=== PATIENT | female | born 1985 | race Caucasian/White ===

== ENCOUNTER 2019-10-04 17:27 | Emergency (ER) | payer OTHER ==
[~2019-10-04] VITALS: Ht 167.6 cm; Wt 54.0 kg
[2019-10-04] MEDS ORDERED: DEXAMETHASONE SOD PHOSPHATE 4 MG INJ IM ONE (18:00)
--- NOTE | 2019-10-04 18:02 | NUR ---
PT IS IN ROOM #1A. DR BRO EVALUATED THE PT.
[2019-10-04] MEDS ORDERED: DEXAMETHASONE SOD PHOSPHATE 10 MG INJ ONE (18:05)
--- NOTE | 2019-10-04 18:11 | NUR ---
PT WAS D/C'd TO HOME. D/C INSTRUCTIONA GIVEN TO THE PT.
[2019-10-04 18:12] VITALS: BP 131/77
== END 2019-10-04 18:15 | disposition home or self-care (01) ==
LOC: ER 17:30
DX: J02.0 Streptococcal pharyngitis (principal)
CPT/HCPCS: 96372; 99283; J1100; A4663

== ENCOUNTER 2019-12-04 07:26 | Emergency (ER) | payer OTHER ==
[~2019-12-04] VITALS: Ht 165.1 cm; Wt 63.5 kg
--- NOTE | 2019-12-04 07:40 | NUR ---
DR ROMAN AT THE BEDSIDE FOR MSE.
[2019-12-04] MEDS ORDERED: PENICILLIN G BENZATHINE 2.4 MMU/4 ML DISP.SYRIN IM ONE ×2 (07:45→07:47)
[2019-12-04] MEDS ORDERED: DEXAMETHASONE SOD PHOSPHATE 10 MG INJ ONE (07:56)
[2019-12-04] MEDS ORDERED: DEXAMETHASONE SOD PHOSPHATE 4 MG INJ IM ONE (08:00)
--- NOTE | 2019-12-04 08:01 | NUR ---
Patient discharged to home in stable conditon. Written and verbal after care instructions given. Patient verbalizes understanding of instructions.
[2019-12-04 08:02] VITALS: BP 104/72
== END 2019-12-04 08:03 | disposition home or self-care (01) ==
LOC: ER 07:27
DX: J02.9 Acute pharyngitis, unspecified (principal)
CPT/HCPCS: 96372 ×2; 99283; J1100; A4663

== ENCOUNTER 2024-06-03 19:30 | Emergency (ER) | payer OTHER ==
[~2024-06-03] VITALS: Ht 157.5 cm; Wt 54.4 kg
[2024-06-03 20:27] LABS: BASOPHILS % (AUTO) 0.5 % (0.0-2.0); EOSINOPHILS # (AUTO) 0.3 K/uL (0.0-0.7); EOSINOPHILS % (AUTO) 4.1 % (0.0-7.0); HEMATOCRIT 41.3 % (31.2-41.9); HEMOGLOBIN 13.8 g/dL (10.9-14.3); MEAN CORPUSCULAR HEMOGLOBIN 29.9 uug (24.7-32.8); MEAN CORPUSCULAR HGB CONC 33 g/dL (32.3-35.6); MEAN CORPUSCULAR VOLUME 89.4 fL (75.5-95.3); MONOCYTES # (AUTO) 0.6 K/uL (0.1-1.30); MONOCYTES % (AUTO) 8.9 % (0.0-11.0); NEUTROPHILS % (AUTO) 57.5 % (38.5-71.5); PLATELET COUNT (AUTO) 257 K/uL (179-408); RED BLOOD CELL COUNT(AUTO) 4.61 MIL/uL (3.63-4.92); RED CELL DISTRIBUTION WIDTH 13.8 % (12.3-17.7)
[2024-06-03 20:29] LABS: *BILIRUBIN,URIN NEGATIVE (NEGATIVE); *CLARITY,URINE CLEAR (CLEAR); *COLOR,URINE YELLOW (YELLOW); *KETONES,URINE NEGATIVE (NEGATIVE); *PROTEIN,URINE TRACE (NEGATIVE); LEUKOCYTE ESTERASE ,URINE NEGATIVE (NEGATIVE); NITRITE, URINE POSITIVE (NEGATIVE); UGLUCOSE TRACE (NEGATIVE)
[2024-06-03 20:30] LABS: *BLOOD, URINE NEGATIVE (NEGATIVE)
[2024-06-03 20:30] LABS: DIFFERENTIAL COMMENT 1
[2024-06-03 20:31] LABS: BACTERIA,URINE FEW /HPF (NONE SEEN); RBC,URINE 0-3 /HPF (0-3)
[2024-06-03 20:34] LABS: CALCIUM 8.6 mg/dL (8.5-10.1); CREATININE 0.7 mg/dL (0.6-1.3); POTASSIUM 3.8 mmol/L (3.5-5.1)
[2024-06-03] MEDS ORDERED: ACETAMINOPHEN 500 MG TABLET ONE (20:50)
[2024-06-03] MEDS ORDERED: FOSFOMYCIN TROMETHAMINE 3 GM PACKET ONE (20:51)
[2024-06-03] MEDS: FOSFOMYCIN TROMETHAMINE 3 GM PACKET PO ONE (20:55)
[2024-06-03] MEDS: ACETAMINOPHEN 500 MG TABLET PO ONE (20:55)
[2024-06-03] MEDS ORDERED: ACET-2605 PO (21:45)
[2024-06-03] MEDS ORDERED: IBUP-1953 PO (21:45)
[2024-06-03 21:52] VITALS: BP 121/76; TEMP 98.2; O2SAT 98
== END 2024-06-03 21:50 | disposition home or self-care (01) ==
LOC: ER 19:31
DX: N39.0 Urinary tract infection, site not specified (principal); M54.50 Low back pain, unspecified; Z79.899 Other long term (current) drug therapy; Z79.1 Long term (current) use of non-steroidal anti-inflammatories (NSAID)
CPT/HCPCS: 36415; 76700; 83605; 85025; A4606; A4663; A9150

== ENCOUNTER 2025-09-11 11:50 | Emergency (ER) | payer OTHER ==
[~2025-09-11] VITALS: Ht 154.9 cm; Wt 59.0 kg
[~2025-09-11 11:50] MED LIST: ACET-2605 PO; AZIT250T13 PO; IBUP-1490 PO; IBUP-1953 PO
[2025-09-11 11:59] VITALS: BP 124/56
[2025-09-11 13:35] VITALS: BP 124/56; O2SAT 97
== END 2025-09-11 13:36 | disposition home or self-care (01) ==
LOC: ER 11:50
DX: S62.633A Displaced fracture of distal phalanx of left middle finger, initial encounter for closed fracture (principal); W20.8XXA Other cause of strike by thrown, projected or falling object, initial encounter; Y93.89 Activity, other specified; Y92.89 Other specified places as the place of occurrence of the external cause; Y99.9 Unspecified external cause status
CPT/HCPCS: 73120; A4606; A4663